=== PATIENT | male | born 1965 | race Caucasian/White ===

== ENCOUNTER 2016-06-16 10:06 | Outpatient (CLI) | payer OTHER | END 2016-06-16 10:07 | disposition home or self-care (01) | DX: E11.9 Type 2 diabetes mellitus without complications (principal) ==

== ENCOUNTER 2017-05-02 09:19 | Outpatient (CLI) | payer OTHER ==
[2017-05-02 17:58] LABS: HB2 TOTAL 16.8 g/dL; HEMOGLOBIN A1C 0.73 g/dL; HEMOGLOBIN A1C % 6.1 % (4.6-6.2)
[2017-05-02 18:18] LABS: ALBUMIN 4.3 g/dL (3.2-5.5); ALBUMIN/GLOBULIN RATIO 1.7 (1.0-2.2); ALKALINE PHOSPHATASE 54 IU/L (42-121); ALT ALANINE AMINOTRANSFERASE 21 IU/L (10-60); AST ASPARTATE AMINOTRANSFERASE 24 IU/L (10-42); BUN - BLOOD UREA NITROGEN 13 mg/dL (6-20); CALCIUM 9.3 mg/dL (8.5-10.3); CARBON DIOXIDE - CO2 27 mmol/L (21-32); CHLORIDE 99 mmol/L (101-111); CHOL/HDL RATIO 4.2 (<5.0); CHOLESTEROL 187 mg/dL; CREATININE 0.8 mg/dL (0.6-1.2); GFR - MDRD 102 (>89); GLUCOSE 104 mg/dL (70-100); HDL CHOLESTEROL 45 mg/dL; LDL CHOLESTEROL,CALCULATED 115 mg/dL; LDL/HDL RATIO 2.6 (<3.6); SODIUM 135 mmol/L (135-145); TOTAL PROTEIN 6.8 g/dL (6.7-8.2); VLDL CHOLESTEROL 27 mg/dL
== END 2017-05-02 09:20 | disposition home or self-care (01) ==
LOC: LAB.F 09:19
PROVIDERS: ATTEND Family Medicine
DX: E11.9 Type 2 diabetes mellitus without complications (principal); E78.5 Hyperlipidemia, unspecified; I10 Essential (primary) hypertension; Z12.5 Encounter for screening for malignant neoplasm of prostate
CPT/HCPCS: 36415; 80053; 80061; 82043; 83036; 83721; 84153

== ENCOUNTER 2017-10-26 08:26 | Outpatient (CLI) | payer OTHER ==
[2017-10-26 12:49] LABS: ALBUMIN 4.3 g/dL (3.2-5.5); ALBUMIN/GLOBULIN RATIO 1.4 (1.0-2.2); ALKALINE PHOSPHATASE 67 IU/L (42-121); ALT ALANINE AMINOTRANSFERASE 33 IU/L (10-60); AST ASPARTATE AMINOTRANSFERASE 29 IU/L (10-42); BILIRUBIN,TOTAL 0.6 mg/dL (0.2-1.0); BUN - BLOOD UREA NITROGEN 11 mg/dL (6-20); CALCIUM 9.5 mg/dL (8.5-10.3); CARBON DIOXIDE - CO2 29 mmol/L (21-32); CHLORIDE 98 mmol/L (101-111); CHOL/HDL RATIO 2.4 (<5.0); CHOLESTEROL 132 mg/dL; CREATININE 0.9 mg/dL (0.6-1.2); GFR - MDRD 89 (>89); GLUCOSE 101 mg/dL (70-100); HDL CHOLESTEROL 54 mg/dL; LDL CHOLESTEROL,CALCULATED 57 mg/dL; LDL/HDL RATIO 1.1 (<3.6); SODIUM 132 mmol/L (135-145); TOTAL PROTEIN 7.4 g/dL (6.7-8.2); VLDL CHOLESTEROL 21 mg/dL
[2017-10-26 12:54] LABS: HB2 TOTAL 16.3 g/dL; HEMOGLOBIN A1C 0.72 g/dL; HEMOGLOBIN A1C % 6.2 % (4.6-6.2)
== END 2017-10-26 08:27 | disposition home or self-care (01) ==
LOC: LAB.WCP 08:26
PROVIDERS: ATTEND Family Medicine
DX: E11.9 Type 2 diabetes mellitus without complications (principal); E78.5 Hyperlipidemia, unspecified; I10 Essential (primary) hypertension
CPT/HCPCS: 36415; 80053; 80061; 83036; 83721

== ENCOUNTER 2018-10-08 08:24 | Outpatient (CLI) | payer OTHER ==
[2018-10-08 10:33] LABS: HGB - HEMOGLOBIN 15.2 g/dL (14.0-18.0); MEAN CORPUSCULAR HEMOGLOBIN 32.7 pg (27.0-31.0); MEAN CORPUSCULAR HGB CONC 33.6 g/dL (32.0-36.0); MEAN CORPUSCULAR VOLUME 97.2 fL (80.0-94.0); MEAN PLATELET VOLUME 9.7 fL (7.4-11.4); RED BLOOD COUNT 4.65 10^6/uL (4.70-6.10); WHITE BLOOD COUNT 8.9 x10^3/uL (4.8-10.8)
[2018-10-08 10:42] LABS: ALBUMIN 4.3 g/dL (3.2-5.5); ALBUMIN/GLOBULIN RATIO 1.5 (1.0-2.2); ALKALINE PHOSPHATASE 59 IU/L (42-121); ALT ALANINE AMINOTRANSFERASE 32 IU/L (10-60); AST ASPARTATE AMINOTRANSFERASE 27 IU/L (10-42); BUN - BLOOD UREA NITROGEN 12 mg/dL (6-20); CALCIUM 9.6 mg/dL (8.5-10.3); CARBON DIOXIDE - CO2 25 mmol/L (21-32); CHLORIDE 97 mmol/L (101-111); CHOL/HDL RATIO 3.1 (<5.0); CHOLESTEROL 151 mg/dL; CREATININE 0.9 mg/dL (0.6-1.2); GFR - MDRD 88 (>89); GLUCOSE 122 mg/dL (70-100); HDL CHOLESTEROL 48 mg/dL; LDL CHOLESTEROL,CALCULATED 63 mg/dL; LDL/HDL RATIO 1.3 (<3.6); SODIUM 136 mmol/L (135-145); TOTAL PROTEIN 7.1 g/dL (6.7-8.2); VLDL CHOLESTEROL 40 mg/dL
[2018-10-08 10:46] LABS: HB2 TOTAL 16.4 g/dL; HEMOGLOBIN A1C 0.75 g/dL; HEMOGLOBIN A1C % 6.3 % (4.6-6.2)
== END 2018-10-08 08:25 | disposition home or self-care (01) ==
LOC: LAB.S 08:24
PROVIDERS: ATTEND Internal Medicine
DX: E78.5 Hyperlipidemia, unspecified (principal); E11.9 Type 2 diabetes mellitus without complications; K21.9 Gastro-esophageal reflux disease without esophagitis
CPT/HCPCS: 36415; 80053; 80061; 83036; 83721; 85027

== ENCOUNTER 2018-11-14 10:16 | Emergency (ER) | payer OTHER ==
--- NOTE | 2018-11-14 11:39 | ED Physician Documentation ---
PD HPI SYNCOPE - Stated complaint Stated Complaint: ds - Chief complaint Chief Complaint: General - History obtained from History obtained from: Patient - History of Present Illness Witnessed: Witnessed (patient felt positional vertigo when rolled over in bed this morning and was feeling vertigo with position changes. Rested some and felt some better so went to work. There, he had feeling of vertigo with nausea again when he tilted head up suddenly. [place] lightheaded as well. No chest pain nor headache. Called his , who brought him to [facility]. There he was looking pale and anxious, with nausea and dizziness, so referred to the ER.) Timing - onset: Today Duration: Hours Preceding symptoms: Nausea / vomiting. No: Headache, Chest pain, Abdominal pain, Light headed, Generalized weakness Contributing factors: Just stood up (with position change). No: Recent med change, Decreased PO intake Similar symptoms before: Has not had sx before Recently seen: Not recently seen Review of Systems Constitutional: denies: Fever, Chills, Myalgias Eyes: denies: Loss of vision, Decreased vision Ears: denies: Loss of hearing, Ear pain Nose: denies: Rhinorrhea / runny nose, Congestion, Foreign Body Throat: denies: Dental pain / toothache, Sore throat Cardiac: denies: Chest pain / pressure Respiratory: denies: Dyspnea GI: reports: Nausea, Vomiting. denies: Abdominal Pain, Diarrhea Neurologic: reports: Generalized weakness. denies: Difficulty speaking, Confused, Altered mental status, Head injury Psychiatric: denies: Anxiety, Insomnia Endocrine: denies: Weight loss Immunocompromised: denies: Immunocompromised PD PAST MEDICAL HISTORY - Past Medical History Cardiovascular: None Respiratory: None Endocrine/Autoimmune: Type 2 diabetes Derm: None - Past Surgical History Past Surgical History: No - Present Medications Home Medications: Ambulatory Orders Medication Instructions Recorded Confirmed Cetirizine [ZyrTEC] 10 mg PO DAILY #15 tablet 11/14/18 Meclizine HCl [Motion Sickness 25 mg PO Q6H PRN #25 tablet 11/14/18 Relief] dexAMETHasone [Decadron] 4 mg PO DAILY #5 tablet 11/14/18 - Allergies Allergies/Adverse Reactions: Allergies Allergy/AdvReac Type Severity Reaction Status Date / Time No Known Drug Allergies Allergy Verified 11/14/18 10:29 - Social History Does the pt smoke?: Yes Smoking Status: Current every day smoker PD ED PE NORMAL - Vitals Vital signs reviewed: Yes - General General: Alert and oriented X 3, No acute distress, Well developed/nourished - HEENT HEENT: Ears normal, Pharynx benign. No: Moist mucous membranes - Neck Neck: Supple, no meningeal sign, No adenopathy - Cardiac Cardiac: RRR, No murmur - Respiratory Respiratory: Clear bilaterally - Abdomen Abdomen: Normal bowel sounds, Soft, Non tender, Non distended - Derm Derm: Normal color, Warm and dry - Extremities Extremities: No tenderness to palpate, Normal ROM s pain, No edema, No calf tenderness / cord - Neuro Neuro: Alert and oriented X 3, No motor deficit, Normal speech Results - Vitals Vitals: Vital Signs - 24 hr 11/14/18 11/14/18 11/14/18 10:20 10:49 12:53 Temperature 36.7 C Heart Rate 73 94 78 Respiratory 19 15 16 Rate Blood Pressure 151/101 H 144/93 H 130/92 H O2 Saturation 99 99 97 11/14/18 11/14/18 13:12 14:56 Temperature Heart Rate 73 76 Respiratory 20 16 Rate Blood Pressure 133/93 H 125/76 O2 Saturation 98 100 Oxygen O2 Source Room air - Labs Labs: Laboratory Tests 11/14/18 11/14/18 11/14/18 10:35 Unknown Unknown WBC 9.8 RBC 4.73 Hgb 15.0 Hct 45.7 MCV 96.6 H MCH 31.7 H MCHC 32.8 RDW 13.0 Plt Count 212 MPV 9.9 Neut # (Auto) 7.3 H Lymph # (Auto) 1.6 Dickenson # (Auto) 0.8 Eos # (Auto) 0.0 Baso # (Auto) 0.1 Absolute Nucleated RBC 0.00 Nucleated RBC % 0.0 ESR Sodium Potassium Chloride Carbon Dioxide Anion Gap BUN Creatinine Estimated GFR (MDRD) Glucose POC Whole Bld Glucose 110 H Calcium Magnesium Total Bilirubin AST ALT Alkaline Phosphatase Troponin I High Sens 4.2 Total Protein Albumin Globulin Albumin/Globulin Ratio Lipase 11/14/18 11/14/18 Unknown Unknown WBC RBC Hgb Hct MCV MCH MCHC RDW Plt Count MPV Neut # (Auto) Lymph # (Auto) [place]enson # (Auto) Eos # (Auto) Baso # (Auto) Absolute Nucleated RBC Nucleated RBC % ESR 5 Sodium 134 L Potassium 4.6 Chloride 98 L Carbon Dioxide 28 Anion Gap 8.0 BUN 13 Creatinine 0.8 Estimated GFR (MDRD) 101 Glucose 112 H POC Whole Bld Glucose Calcium 9.4 Magnesium 2.1 Total Bilirubin 0.7 AST 25 ALT 28 Alkaline Phosphatase 66 Troponin I High Sens Total Protein 7.7 Albumin 4.6 Globulin 3.1 Albumin/Globulin Ratio 1.5 Lipase 28 PD MEDICAL DECISION MAKING - ED course Complexity details: considered differential, d/w patient, d/w family () Departure - Departure Disposition: Home, Self Care Clinical Impression: Dizziness, Nausea, Syncope, near Condition: Stable Record reviewed to determine appropriate education?: Yes Instructions: ED Vertigo Unspecified Follow-Up: Ton Lynne MD [Primary Care Provider] - Prescriptions: Cetirizine [ZyrTEC] 10 mg PO DAILY #15 tablet dexAMETHasone [Decadron] 4 mg PO DAILY #5 tablet Meclizine HCl [Motion Sickness Relief] 25 mg PO Q6H PRN #25 tablet PRN Reason: Vertigo Comments: Rest and stay well-hydrated today. Use Decadron steroid anti-inflammatory daily for 5 days. Cetirizine antihistamine daily for 1 to 2 weeks. Use meclizine as needed for dizziness every 6 hours based on symptoms. See how you feel tomorrow if the dizziness is improved then resume normal activity and work. It may take 2 to 3 days to feel fully better. Forms: Activity restrictions Discharge Date/Time: 11/14/18 14:56
[2018-11-14] MEDS ORDERED: KETOROLAC 15 MG/ML VIAL IVP STA (12:10)
[2018-11-14] MEDS ORDERED: MECLIZINE 12.5 MG TABLET PO STA (12:10)
[2018-11-14] MEDS ORDERED: ONDANSETRON 4 MG/2 ML VIAL IVP STA (12:10)
[2018-11-14] MEDS ORDERED: DEXAMETHASONE 10 MG/ML VIAL IVP STA (12:10)
--- NOTE | 2018-11-14 12:49 | CT Report ---
Reason: dizziness onset last night, worse today Procedure Date: 11/14/2018 Accession Number: [id number] / [id number] Procedure: CT - HEAD WO CPT Code: FULL RESULT: EXAM: CT HEAD EXAM DATE: 11/14/2018 12:36 PM. CLINICAL HISTORY: Dizziness onset last night, worse today. COMPARISON: None. TECHNIQUE: Multiaxial CT images were obtained from the foramen magnum to the vertex. Reformats: Sagittal and coronal. IV contrast: None. In accordance with CT protocol optimization, one or more of the following dose reduction techniques were utilized for this exam: automated exposure control, adjustment of mA and/or KV based on patient size, or use of iterative reconstructive technique. FINDINGS: Parenchyma: No intraparenchymal hemorrhage. No evidence of mass, midline shift, or CT findings of infarction. Smith-white differentiation is distinct. Left optic nerve drusen, typically an incidental finding. Extraaxial Spaces: Normal for age. No subdural or epidural collections identified. Ventricles: Normal in size and position. Sinuses and Orbits: Imaged paranasal sinuses, orbits, and mastoids show no significant abnormality. Bones: No evidence of fracture or calvarial defect. Probable small bone island, right temporal bone. Other: None. IMPRESSION: No significant abnormality. RADIA
[2018-11-14 13:07] LABS: BASOPHILS # (AUTO) 0.1 10^3/uL (0.0-0.1); BASOPHILS % (AUTO) 0.6 %; EOSINOPHILS % (AUTO) 0.2 %; LYMPHOCYTES # (AUTO) 1.6 10^3/uL (1.5-3.5); LYMPHOCYTES % (AUTO) 16.5 %; MEAN CORPUSCULAR HEMOGLOBIN 31.7 pg (27.0-31.0); MEAN CORPUSCULAR HGB CONC 32.8 g/dL (32.0-36.0); MEAN CORPUSCULAR VOLUME 96.6 fL (80.0-94.0); MEAN PLATELET VOLUME 9.9 fL (7.4-11.4); MONOCYTES # (AUTO) 0.8 10^3/uL (0.0-1.0); MONOCYTES % (AUTO) 8.1 %; NEUTROPHILS # (AUTO) 7.3 10^3/uL (1.5-6.6); NEUTROPHILS % (AUTO) 74.2 %; PLT - PLATELET COUNT 212 10^3/uL (130-450); RED BLOOD COUNT 4.73 10^6/uL (4.70-6.10); WHITE BLOOD COUNT 9.8 x10^3/uL (4.8-10.8)
[2018-11-14 13:13] LABS: ALBUMIN 4.6 g/dL (3.2-5.5); ALBUMIN/GLOBULIN RATIO 1.5 (1.0-2.2); BILIRUBIN,TOTAL 0.7 mg/dL (0.2-1.0); CALCIUM 9.4 mg/dL (8.5-10.3); CREATININE 0.8 mg/dL (0.6-1.2); MAGNESIUM 2.1 mg/dL (1.7-2.8); TOTAL PROTEIN 7.7 g/dL (6.7-8.2)
[2018-11-14 14:56] VITALS: BP 125/76
== END 2018-11-14 14:56 | disposition home or self-care (01) ==
LOC: ED 10:16
DX: R42 Dizziness and giddiness (principal); R11.0 Nausea; R55 Syncope and collapse; E11.9 Type 2 diabetes mellitus without complications; F17.200 Nicotine dependence, unspecified, uncomplicated
CPT/HCPCS: 36415; 70450; 80053; 83690; 83735; 84484; 85025; 85651; 93005; 96374; 99284; A9270

== ENCOUNTER 2019-01-22 07:02 | Day surgery (SDC) | payer OTHER ==
[2019-01-22] MEDS ORDERED: LACTATED RINGERS 1,000 ML IV ONE (07:07)
--- NOTE | 2019-01-22 08:09 | ANESTHESIA ---
Pre-Anesthesia VS, & Labs - Diagnosis routine colonoscopy - Procedure colonoscopy Vital Signs: Temp Pulse Resp BP Pulse Ox 36.7 C 88 16 155/106 H 99 01/22/19 07:11 01/22/19 07:11 01/22/19 07:11 01/22/19 07:11 01/22/19 07:11 Height 5 ft 9 in Weight (kg) 84 kg Body Mass Index 26.9 - Lab Results Current Lab Results: Laboratory Tests 01/22/19 07:19: POC Whole Bld Glucose 91 Home Medications and Allergies Home Medications: Ambulatory Orders Amlodipine Besylate 10 mg PO DAILY 01/09/19 Lisinopril 20 mg PO DAILY 01/09/19 Metformin HCl 850 mg PO DAILY 01/09/19 Simvastatin 40 mg PO QPM 01/09/19 Amlodipine Besylate 10 mg PO DAILY 01/09/19 Lisinopril 20 mg PO DAILY 01/09/19 Metformin HCl 850 mg PO DAILY 01/09/19 Simvastatin 40 mg PO QPM 01/09/19 Allergies/Adverse Reactions: Allergies Allergy/AdvReac Type Severity Reaction Status Date / Time No Known Drug Allergies Allergy Verified 11/14/18 10:29 Anes History & Medical History - Anesthetic History Anesthesia Complications: reports: No previous complications Family history of Anesthesia Complications: Denies Family history of Malignant Hyperthermia: Denies - Medical History Cardiovascular: reports: Hypertension, High cholesterol Pulmonary: reports: None, Other (1 ppd x 30 years) Gastrointestinal: reports: None, GERD (occassional "heart burn") Urinary: reports: None Neuro: reports: None Musculoskeletal: reports: None Endocrine/Autoimmune: reports: Type 2 diabetes Blood Disorders: reports: None Skin: reports: Psoriasis Smoking Status: Current every day smoker Psychosocial: reports: No issues indicated - Surgical History General: Colonoscopy Exam General: Alert, Oriented x3, Cooperative, No acute distress Dental: Other (chipped tooth top) Mouth Openin Fingerbreadth Neck Mobility: Normal Mallampati classification: I Thyromental Distance: 4-6 cm Respiratory: Decreased breath sounds Cardiovascular: Regular rate, Normal S1, Normal S2, No murmurs Abdomen: Normal bowel sounds, Soft, No tenderness, No hepatospenomegaly, No masses Extremities: No clubbing, No cyanosis, No edema, Normal pulses, No tenderness/swelling Neurological: Normal gait, Normal speech, Strength at 5/5 X4 ext, Normal tone, Sensation intact, Cranial nerves 3-12 NL, Reflexes 2+ Mental/Cognitive Status: Alert/Oriented X3, Normal for patient Cognitive Status: Within normal limits Plan Anesthesia Type: MAC Consent for Procedure(s) Verified and Reviewed: Yes Code Status: Attempt Resuscitation ASA classification: 2-Mild systemic disease Is this case an emergency?: No
[2019-01-22] MEDS ORDERED: PROPOFOL 200 MG/20 ML VIAL IVP ONE (09:00)
[2019-01-22] MEDS ORDERED: fentaNYL 100 MCG/2 ML VIAL IVP ONE (09:00)
[2019-01-22] MEDS ORDERED: MIDAZOLAM 2 MG/2 ML VIAL IVP ONE (09:00)
[2019-01-22 10:07] VITALS: BP 135/91
== END 2019-01-22 07:03 | disposition home or self-care (01) ==
LOC: SDS 07:02
PROVIDERS: ATTEND Internal Medicine Gastroenterology
PROC: 0DJD8ZZ Inspection of Lower Intestinal Tract, Via Natural or Artificial Opening Endoscopic (ICD-10-PCS; principal; 2019-01-22 08:30)
DX: Z12.11 Encounter for screening for malignant neoplasm of colon (principal); E11.9 Type 2 diabetes mellitus without complications; I10 Essential (primary) hypertension; I73.9 Peripheral vascular disease, unspecified; F17.210 Nicotine dependence, cigarettes, uncomplicated; Z72.89 Other problems related to lifestyle; K21.9 Gastro-esophageal reflux disease without esophagitis
CPT/HCPCS: 45378; J7120

== ENCOUNTER 2019-10-24 08:57 | Outpatient (CLI) | payer OTHER ==
[2019-10-24 15:52] LABS: HB2 TOTAL 15.8 g/dL; HEMOGLOBIN A1C 0.69 g/dL; HEMOGLOBIN A1C % 6.1 % (4.6-6.2)
[2019-10-24 16:23] LABS: ALBUMIN 4.3 g/dL (3.2-5.5); ALBUMIN/GLOBULIN RATIO 1.5 (1.0-2.2); ALKALINE PHOSPHATASE 69 IU/L (42-121); ALT ALANINE AMINOTRANSFERASE 38 IU/L (10-60); AST ASPARTATE AMINOTRANSFERASE 32 IU/L (10-42); BILIRUBIN,TOTAL 0.7 mg/dL (0.2-1.0); BUN - BLOOD UREA NITROGEN 10 mg/dL (6-20); CALCIUM 9.6 mg/dL (8.5-10.3); CARBON DIOXIDE - CO2 28 mmol/L (21-32); CHLORIDE 99 mmol/L (101-111); CHOL/HDL RATIO 2.8 (<5.0); CHOLESTEROL 129 mg/dL; GLUCOSE 112 mg/dL (70-100); HDL CHOLESTEROL 46 mg/dL; LDL CHOLESTEROL,CALCULATED 63 mg/dL; LDL/HDL RATIO 1.4 (<3.6); SODIUM 135 mmol/L (135-145); TOTAL PROTEIN 7.1 g/dL (6.7-8.2); VLDL CHOLESTEROL 20 mg/dL
== END 2019-10-24 08:58 | disposition home or self-care (01) ==
LOC: LAB.S 08:57
PROVIDERS: ATTEND Internal Medicine
DX: E78.5 Hyperlipidemia, unspecified (principal); E11.9 Type 2 diabetes mellitus without complications
CPT/HCPCS: 36415; 80053; 80061; 83036; 83721

== ENCOUNTER 2020-03-28 00:25 | Outpatient (CLI) | payer OTHER | END 2020-03-28 00:26 | disposition EMS.NT | LOC: EMS 00:25 | PROVIDERS: ATTEND Surgery | DX: R07.81 Pleurodynia (principal) ==

== ENCOUNTER 2020-03-28 01:19 | Emergency (ER) | payer OTHER ==
[2020-03-28 02:16] LABS: BASOPHILS % (AUTO) 0.3 %; EOSINOPHILS % (AUTO) 0.2 %; HGB - HEMOGLOBIN 14.4 g/dL (14.0-18.0); LYMPHOCYTES # (AUTO) 1.8 10^3/uL (1.5-3.5); LYMPHOCYTES % (AUTO) 15.3 %; MEAN CORPUSCULAR HEMOGLOBIN 32.5 pg (27.0-31.0); MEAN CORPUSCULAR HGB CONC 33.8 g/dL (32.0-36.0); MEAN CORPUSCULAR VOLUME 96.2 fL (80.0-94.0); MEAN PLATELET VOLUME 9.6 fL (7.4-11.4); MONOCYTES # (AUTO) 0.9 10^3/uL (0.0-1.0); MONOCYTES % (AUTO) 7.5 %; NEUTROPHILS # (AUTO) 8.9 10^3/uL (1.5-6.6); NEUTROPHILS % (AUTO) 76.4 %; PLT - PLATELET COUNT 232 10^3/uL (130-450); RED BLOOD COUNT 4.43 10^6/uL (4.70-6.10); RED CELL DISTRIBUTION WIDTH 12.9 % (12.0-15.0); WHITE BLOOD COUNT 11.7 x10^3/uL (4.8-10.8)
--- NOTE | 2020-03-28 02:23 | ED Physician Documentation ---
PD HPI SYNCOPE - Stated complaint Stated Complaint: GLF/SYNCOPE - Chief complaint Chief Complaint: Trauma Ch/Bk - History obtained from History obtained from: Patient - History of Present Illness Witnessed: Unwitnessed Timing - onset: Enter time (1844), Today Duration: Seconds Preceding symptoms: Other (coughing paroxysm) Associated symptoms: Chest pain, Dyspnea Contributing factors: Other (coughing paroxysm) Injury occurred: Fell (injuring his back on the left side feels like he broke a rib) Similar symptoms before: No diagnosis (has had syncope with seizure with coughing paroxysm) Recently seen: Not recently seen - Additional information Additional information: 54-year-old smoking male alcoholic has had a cough that has been worse over the past month and he is having coughing paroxysms that are hard enough that he is having syncope. He has had an episode last month where he coughed hard enough he had a seizure according to his . The patient states that today he was in the bathroom he had a coughing paroxysm that caused a syncopal episode he fell against a wall and has pain to the ribs on the back on the left side. He also has some pain in his abdomen anteriorly. He has not been in see the doctor about his cough he does not have medications he takes for this. This fall happened at 89 and the patient has not been able to get comfortable he is not been able to sleep has not been able to move around. Review of Systems Constitutional: denies: Fever Eyes: denies: Loss of vision, Decreased vision Ears: denies: Ear pain Nose: reports: Rhinorrhea / runny nose, Congestion Throat: denies: Sore throat Cardiac: reports: Chest pain / pressure (to the back on the left side). denies: Palpitations Respiratory: reports: Dyspnea, Cough GI: reports: Abdominal Pain. denies: Nausea, Vomiting, Constipation, Diarrhea : denies: Dysuria, Frequency Skin: denies: Rash Musculoskeletal: reports: Back pain. denies: Neck pain, Extremity pain, Extremity swelling Neurologic: reports: Syncope, Seizure. denies: Generalized weakness, Focal weakness, Numbness PD PAST MEDICAL HISTORY - Past Medical History Past Medical History: Yes Cardiovascular: Hypertension, High cholesterol Respiratory: None, Other Neuro: None Endocrine/Autoimmune: Type 2 diabetes GI: None, GERD : None HEENT: Chronic vision loss, Other Psych: None Musculoskeletal: None Derm: Psoriasis Other Past Medical History: Alcoholism - Past Surgical History Past Surgical History: No General: Colonoscopy - Present Medications Home Medications: Ambulatory Orders Medication Instructions Recorded Confirmed Amlodipine Besylate 10 mg PO DAILY 01/09/19 03/28/20 Metformin HCl 850 mg PO DAILY 01/09/19 03/28/20 Simvastatin 40 mg PO QPM 01/09/19 03/28/20 lisinopriL [Lisinopril] 20 mg PO DAILY 01/09/19 03/28/20 Amox/Clav 875/125 [Augmentin] 1 each PO Q12H #20 tablet 03/28/20 Benzonatate [Tessalon] 100 - 200 mg PO TID PRN #30 capsule 03/28/20 HYDROcod/ACETAM 5/325 [Knippa 5/325] 1 - 2 ea PO Q6H PRN #15 tablet 03/28/20 - Allergies Allergies/Adverse Reactions: Allergies Allergy/AdvReac Type Severity Reaction Status Date / Time No Known Drug Allergies Allergy Verified 03/28/20 01:37 - Social History Does the pt smoke?: Yes Smoking Status: Current every day smoker Does the pt drink ETOH?: Yes Does the pt have substance abuse?: No - Immunizations Immunizations are current?: Yes - POLST Patient has POLST: No PD ED PE NORMAL - Vitals Vital signs reviewed: Yes - General General: Alert and oriented X 3, No acute distress, Well developed/nourished, Other (winches with coughing and movement ) - HEENT HEENT: Atraumatic, PERRL, EOMI, Pharynx benign, Other (Both TMs are occluded by cerumen.) - Neck Neck: Supple, no meningeal sign, No bony TTP - Cardiac Cardiac: RRR, No murmur - Respiratory Respiratory: No respiratory distress, Other (Rhonchi in the left mid lung field pain to the chest wall posteriorly on the left side) - Abdomen Abdomen: Normal bowel sounds, Soft, Non distended, No organomegaly, Other (There is mild point tenderness to the abdominal wall anteriorly on the left side.) - Back Back: No spinal TTP, Other (There is left CVA tenderness to palpation referring to the ribs posteriorly.) - Derm Derm: Normal color, Warm and dry, No rash - Extremities Extremities: No deformity, No edema - Neuro Neuro: Alert and oriented X 3, veneer layer 2-12 intact, No motor deficit, No sensory deficit, Normal speech Eye Opening: Spontaneous Motor: Obeys Commands Verbal: Oriented GCS Score: 15 - Psych Psych: Normal mood, Normal affect Results - Vitals Vitals: Vital Signs - 24 hr 03/28/20 03/28/20 03/28/20 01:20 02:15 02:45 Temperature 36.2 C L Heart Rate 85 82 81 Respiratory 24 19 21 Rate Blood Pressure 119/78 133/86 H 146/100 H O2 Saturation 98 98 98 03/28/20 03/28/20 03/28/20 03:34 03:59 04:25 Temperature 36.8 C Heart Rate 85 86 88 Respiratory 20 22 21 Rate Blood Pressure 141/88 H 141/88 H 159/86 H O2 Saturation 100 97 98 Oxygen O2 Source Room air - EKG (time done) 0133 Rate: Rate (enter#) (92) Intervals: Prolonged QT (borderline) Other comments: Other comments (early transition unchanged. ) Compare to prior EKG: Unchanged from prior EKG (SPT 11-14-2018 no changes ) Computer interpretation: Agree with computer - Labs Labs: Laboratory Tests 03/28/20 03/28/20 03/28/20 01:40 01:40 01:40 WBC 11.7 H RBC 4.43 L Hgb 14.4 Hct 42.6 MCV 96.2 H MCH 32.5 H MCHC 33.8 RDW 12.9 Plt Count 232 MPV 9.6 Neut # (Auto) 8.9 H Lymph # (Auto) 1.8 [place] # (Auto) 0.9 Eos # (Auto) 0.0 Baso # (Auto) 0.0 Absolute Nucleated RBC 0.00 Nucleated RBC % 0.0 Sodium 129 L Potassium 4.3 Chloride 95 L Carbon Dioxide 25 Anion Gap 9.0 BUN 11 Creatinine 0.8 Estimated GFR (MDRD) 100 Glucose 140 H POC Whole Bld Glucose Calcium 8.8 Total Bilirubin 0.8 AST 23 ALT 32 Alkaline Phosphatase 57 Troponin I High Sens 4.1 Total Protein 7.2 Albumin 4.3 Globulin 2.9 Albumin/Globulin Ratio 1.5 Lipase 76 H Ethyl Alcohol 03/28/20 03/28/20 01:40 01:49 WBC RBC Hgb Hct MCV MCH MCHC RDW Plt Count MPV Neut # (Auto) Lymph # (Auto) [place] # (Auto) Eos # (Auto) Baso # (Auto) Absolute Nucleated RBC Nucleated RBC % Sodium Potassium Chloride Carbon Dioxide Anion Gap BUN Creatinine Estimated GFR (MDRD) Glucose POC Whole Bld Glucose 149 H Calcium Total Bilirubin AST ALT Alkaline Phosphatase Troponin I High Sens Total Protein Albumin Globulin Albumin/Globulin Ratio Lipase Ethyl Alcohol 131.3 - Rads (name of study) ribs with PA chest Radiology: Prelim report reviewed (Impression: Left ninth 10th and 11th rib fractures appear to be acute. No pneumothorax is appreciated.), EMP read indepedently, See rad report Procedures - Bedside sono Bedside sono by EMP: With use of bedside ultrasound the left upper quadrant is imaged and there is no free fluid in the spenorenal recess. PD MEDICAL DECISION MAKING - ED course Complexity details: reviewed old records, reviewed results, re-evaluated patient, considered differential, d/w patient ED course: 54-year-old gentleman with a coughing paroxysm and syncope with a related chest wall injury is very uncomfortable with any movement and here in the emergency department an IV is begun he is given intravenous Toradol and dexamethasone and rib series is obtained. The patient has had a cough with coughing paroxysms that is been present for 1 more than 1 month causing both syncope, broken ribs and seizure. He has cerumen to both ears and this is removed by irrigation with warm saline and this reveals inflammation and flattening of the landmarks on the right and clear on the left. The coughing paroxysms are likely related the chest looks clear on X-ray. He is treated for OM with a dose of rocephin in the ED and augmentin to follow up. He has 2 cracked ribs and a displace rib fracture. He has improvement with the toradal. He works in the [employer] and will need at least 4 weeks off. Departure - Departure Disposition: 01 Home, Self Care Clinical Impression: Paroxysmal cough Fracture of rib Qualifiers: Encounter type: initial encounter Rib fracture type: multiple ribs Fracture type: closed Laterality: left Qualified Code(s): S22.42XA - Multiple fractures of ribs, left side, initial encounter for closed fracture Otitis media Qualifiers: Otitis media type: suppurative Chronicity: acute Laterality: right Recurrence: not specified as recurrent Spontaneous tympanic membrane rupture: without spontaneous rupture Qualified Code(s): H66.001 - Acute suppurative otitis media without spontaneous rupture of ear drum, right ear Instructions: ED Fx Rib, ED Otitis Media Acute Adult Follow-Up: [facility] [Provider Group] Prescriptions: Amox/Clav 875/125 [Augmentin] 1 each PO Q12H #20 tablet HYDROcod/ACETAM 5/325 [Knippa 5/325] 1 - 2 ea PO Q6H PRN #15 tablet PRN Reason: Pain Benzonatate [Tessalon] 100 - 200 mg PO TID PRN #30 capsule PRN Reason: Cough Forms: Activity restrictions
[2020-03-28 02:26] LABS: ALBUMIN 4.3 g/dL (3.2-5.5); ALBUMIN/GLOBULIN RATIO 1.5 (1.0-2.2); BILIRUBIN,TOTAL 0.8 mg/dL (0.2-1.0); CALCIUM 8.8 mg/dL (8.5-10.3); CREATININE 0.8 mg/dL (0.6-1.2); TOTAL PROTEIN 7.2 g/dL (6.7-8.2)
[2020-03-28] MEDS ORDERED: DEXAMETHASONE 10 MG/ML VIAL IVP STA (02:36)
[2020-03-28] MEDS ORDERED: KETOROLAC 30 MG/ML VIAL IVP STA (02:36)
[2020-03-28] MEDS ORDERED: HYDROcod/ACETAM 5/325 MG TABLET PO STA (04:03)
[2020-03-28] MEDS ORDERED: HYDROcod/ACET 5/325 Prepack 4 PO STA (04:04)
[2020-03-28 04:28] VITALS: BP 159/86
--- NOTE | 2020-03-28 08:20 | XRAY Report ---
PROCEDURE: Ribs w/PA Chest LT INDICATIONS: fall chest contusion pain cough TECHNIQUE: 4 views of the left ribs were acquired, along with a single view chest. COMPARISON: None FINDINGS: Surgical changes and devices: None. Bones and chest wall: Mildly displaced, acute appearing left lateral ninth, 10th, and 11th rib fractu res can be seen. No suspicious bony lesions. Overlying soft tissues appear unremarkable. Lungs and pleura: No pleural effusions or pneumothorax. Lungs appear clear. Mediastinum: Mediastinal contours appear normal. Heart size is normal. IMPRESSION: There are mildly displaced left lateral ninth, 10th, and 11th rib fractures. No associated pneumothorax can be seen. Note: No significant discrepancy from the preliminary report. Reviewed by: Keven Onofre MD on 03/28/2020 7:18 AM [facility] Approved by: Keven Onofre MD on 03/28/2020 7:18 AM [facility] Station ID: [id number]
== END 2020-03-28 04:35 | disposition home or self-care (01) ==
LOC: ED 01:19
DX: S22.42XA Multiple fractures of ribs, left side, initial encounter for closed fracture (principal); W01.190A Fall on same level from slipping, tripping and stumbling with subsequent striking against furniture, initial encounter; Y93.F9 Activity, other caregiving; Y92.002 Bathroom of unspecified non-institutional (private) residence as the place of occurrence of the external cause; H66.001 Acute suppurative otitis media without spontaneous rupture of ear drum, right ear; I10 Essential (primary) hypertension; E11.9 Type 2 diabetes mellitus without complications; Z79.84 Long term (current) use of oral hypoglycemic drugs; F17.200 Nicotine dependence, unspecified, uncomplicated; R94.31 Abnormal electrocardiogram [ECG] [EKG]
CPT/HCPCS: 71101; 80053; 80320; 83690; 84484; 85025; 93005; 96374; 96375; 99284; A9270

== ENCOUNTER 2020-10-26 09:25 | Outpatient (CLI) | payer OTHER ==
[2020-10-26 16:32] LABS: BUN - BLOOD UREA NITROGEN 16 mg/dL (6-20); CALCIUM 9.3 mg/dL (8.5-10.3); CARBON DIOXIDE - CO2 28 mmol/L (21-32); CHLORIDE 97 mmol/L (101-111); CHOL/HDL RATIO 3.4 (<5.0); CHOLESTEROL 175 mg/dL; GFR - MDRD 78 (>89); GLUCOSE 114 mg/dL (70-100); HDL CHOLESTEROL 52 mg/dL; LDL CHOLESTEROL,CALCULATED 93 mg/dL; LDL/HDL RATIO 1.8 (<3.6); POTASSIUM 4.2 mmol/L (3.5-5.0); SODIUM 134 mmol/L (135-145); TRIGLYCERIDES 148 mg/dL; VLDL CHOLESTEROL 30 mg/dL
[2020-10-26 16:37] LABS: CREATININE,URINE 116.1 mg/dL; MICROALBUM/CREATININE RATIO,UR 9.5 ug/mg (<30.0); MICROALBUMIN,URINE 1.1 mg/dL (0-300.0)
[2020-10-26 20:10] LABS: ESTIMATED AVERAGE GLUCOSE 140 mg/dL (70-100); HEMOGLOBIN A1c% 6.5 % (4.27-6.07)
== END 2020-10-26 09:26 | disposition home or self-care (01) ==
LOC: LAB.S 09:25
PROVIDERS: ATTEND Physician Assistant
DX: E11.9 Type 2 diabetes mellitus without complications (principal); E78.5 Hyperlipidemia, unspecified; I10 Essential (primary) hypertension
CPT/HCPCS: 36415; 80048; 80061; 82043; 82570; 83036; 83721

== ENCOUNTER 2021-09-09 15:21 | Outpatient (CLI) | payer OTHER ==
--- NOTE | 2021-09-09 19:09 | CT Report ---
PROCEDURE: Low Dose Lung Cancer Screen INDICATIONS: NICOTINE DEPENDENCE TECHNIQUE: Noncontrast low-dose images were acquired from the pulmonary apices to the posterior costophrenic ang les. Multiplanar MIP reformats were then acquired. For radiation dose reduction, the following was used: automated exposure control, adjustment of mA and/or kV according to patient size. COMPARISON: None. FINDINGS: Image quality: Excellent. Lungs and pleura: Lung nodules are present. Reference nodules are listed in following: Nodule 1: 6 mm; right apex; series 4 image 51. Nodule 2: 6 mm; right upper lobe; series 4 image 172. Nodule 3: 4 mm; right lower lobe; series 4 image 168. Nodule 4: 8 x 6 mm; left major fissure; series 4 image 151. Nodule 5: 3 mm; left major fissure; series 4 image 147. Mediastinum: Heart size is normal. No pericardial effusion. No mediastinal adenopathy by size crit eria. Thoracic aorta and central pulmonary arteries are normal in size. Esophagus is normal in becka silvia. No hiatal hernia. Bones and chest wall: There are enlarged left axillary lymph nodes are seen, measuring up to 1.5 cm (series 3 image 13). No suspicious bony lesions. No vertebral body compression fractures. The thyroid is normal in size and there are no incidental findings. Abdomen: Visualized upper abdomen solid organs and bowel loops appear normal in the absence of contr ast. IMPRESSION: 1. Multiple lung nodules are present bilaterally. ACR lung RADS category 3. Recommend a follow-up CT in 6 months. 2. Mild left axillary lymphadenopathy, nonspecific. Recommend clinical correlation and follow-up. CLINICAL RECOMMENDATION STATEMENTS: In patients <35 years with an ITN detected on CT, MRI, or extrathyroidal ultrasound, the Committee re commends further evaluation with dedicated thyroid ultrasound if the nodule is "e1 cm and has no susp icious imaging features, and if the patient has normal life expectancy. In patients "e35 years with an ITN detected on CT, MRI, or extrathyroidal ultrasound, the Committee r ecommends further evaluation with dedicated thyroid ultrasound if the nodule is "e1.5 cm and has no s uspicious imaging features, and if the patient has normal life expectancy. (ACR, 2014) Reviewed by: Troy Liu MD on 09/09/2021 7:07 PM PDT Approved by: Troy Liu MD on 09/09/2021 7:07 PM [facility] Station ID: [id number]
== END 2021-09-09 15:22 | disposition home or self-care (01) ==
LOC: DI 15:21
PROVIDERS: ATTEND Physician Assistant
DX: Z12.2 Encounter for screening for malignant neoplasm of respiratory organs (principal); F17.200 Nicotine dependence, unspecified, uncomplicated; R91.8 Other nonspecific abnormal finding of lung field; R59.0 Localized enlarged lymph nodes

== ENCOUNTER 2021-09-15 08:35 | Outpatient (CLI) | payer OTHER ==
[2021-09-15 14:24] LABS: BASOPHILS # (AUTO) 0.1 10^3/uL (0.0-0.1); BASOPHILS % (AUTO) 0.8 %; EOSINOPHILS # (AUTO) 0.1 10^3/uL (0.0-0.7); EOSINOPHILS % (AUTO) 0.7 %; HCT - HEMATOCRIT 45.2 % (42.0-52.0); HGB - HEMOGLOBIN 15.2 g/dL (14.0-18.0); LYMPHOCYTES # (AUTO) 2.4 10^3/uL (1.5-3.5); LYMPHOCYTES % (AUTO) 25.8 %; MEAN CORPUSCULAR HEMOGLOBIN 32.6 pg (27.0-31.0); MEAN CORPUSCULAR HGB CONC 33.6 g/dL (32.0-36.0); MEAN PLATELET VOLUME 10.2 fL (7.4-11.4); MONOCYTES # (AUTO) 0.8 10^3/uL (0.0-1.0); MONOCYTES % (AUTO) 8.6 %; NEUTROPHILS # (AUTO) 5.8 10^3/uL (1.5-6.6); NEUTROPHILS % (AUTO) 63.3 %; PLT - PLATELET COUNT 209 10^3/uL (130-450); RED BLOOD COUNT 4.66 10^6/uL (4.70-6.10); RED CELL DISTRIBUTION WIDTH 13.2 % (12.0-15.0); WHITE BLOOD COUNT 9.1 x10^3/uL (4.8-10.8)
[2021-09-15 14:52] LABS: ALBUMIN 4.2 g/dL (3.2-5.5); ALBUMIN/GLOBULIN RATIO 1.4 (1.0-2.2); ALKALINE PHOSPHATASE 48 IU/L (42-121); ALT ALANINE AMINOTRANSFERASE 40 IU/L (10-60); AST ASPARTATE AMINOTRANSFERASE 29 IU/L (10-42); BILIRUBIN,TOTAL 0.7 mg/dL (0.2-1.0); BUN - BLOOD UREA NITROGEN 15 mg/dL (6-20); CALCIUM 9.6 mg/dL (8.5-10.3); CARBON DIOXIDE - CO2 26 mmol/L (21-32); CHLORIDE 101 mmol/L (101-111); CHOL/HDL RATIO 3.1 (<5.0); CHOLESTEROL 152 mg/dL; CREATININE 0.9 mg/dL (0.6-1.2); GFR - MDRD 87 (>89); GLUCOSE 106 mg/dL (70-100); HDL CHOLESTEROL 49 mg/dL; LDL CHOLESTEROL,CALCULATED 74 mg/dL; LDL/HDL RATIO 1.5 (<3.6); POTASSIUM 4.4 mmol/L (3.5-5.0); SODIUM 135 mmol/L (135-145); TOTAL PROTEIN 7.1 g/dL (6.7-8.2); TRIGLYCERIDES 144 mg/dL; VLDL CHOLESTEROL 29 mg/dL
[2021-09-15 14:53] LABS: THYROID STIMULATING HORMONE 2.6 uIU/mL (0.34-5.60)
[2021-09-15 15:20] LABS: MICROALBUM/CREATININE RATIO,UR 3.4 ug/mg (<30.0); MICROALBUMIN,URINE 0.5 mg/dL (0-300.0)
[2021-09-15 20:55] LABS: ESTIMATED AVERAGE GLUCOSE 143 mg/dL (70-100); HEMOGLOBIN A1c% 6.6 % (4.27-6.07)
== END 2021-09-15 08:36 | disposition home or self-care (01) ==
LOC: LAB.S 08:35
PROVIDERS: ATTEND Physician Assistant
DX: F17.200 Nicotine dependence, unspecified, uncomplicated (principal); E78.5 Hyperlipidemia, unspecified; E11.9 Type 2 diabetes mellitus without complications; I10 Essential (primary) hypertension; N52.9 Male erectile dysfunction, unspecified
CPT/HCPCS: 36415; 80053; 80061; 82043; 82570; 83036; 83721; 84153; 84443; 85025

== ENCOUNTER 2022-03-22 15:42 | Outpatient (CLI) | payer OTHER ==
--- NOTE | 2022-03-22 16:31 | CT Report ---
PROCEDURE: CHEST WO INDICATIONS: LUNG NODULES TECHNIQUE: Noncontrast 1mm axial images were acquired from the pulmonary apices to the posterior costophrenic an gles. Axial 5 mm soft tissue kernel reconstructions were performed as well as 8 mm axial MIP and cor onal and sagittal 5 mm reformations. For radiation dose reduction, the following was used: automate d exposure control, adjustment of mA and/or kV according to patient size. COMPARISON: 09/09/2021 FINDINGS: Image quality: Good Lungs and pleura: No dense consolidation or pleural effusion. Scattered scarring and atelectasis. Emp hysema. Stable pulmonary nodules. None are overtly suspicious. There are also fissural lymph nodes. Mediastinum, heart, and esophagus: No hiatal hernia. There are prominent mediastinal lymph nodes that are stable. Normal heart size. Chest wall and thyroid: Unremarkable Upper abdomen: Unremarkable on these limited images. Bones: No acute or suspicious osseous abnormality. IMPRESSION: Assuming patient remains eligible, recommend return to annual lung cancer low-dose CT screening. Pulm onary nodules are stable. Reviewed by: Boo Macedo MD on 03/22/2022 4:29 PM PST Approved by: Boo Macedo MD on 03/22/2022 4:29 PM PST Station ID: [id number]
== END 2022-03-22 15:43 | disposition home or self-care (01) ==
LOC: DI 15:42
PROVIDERS: ATTEND Physician Assistant
DX: R91.8 Other nonspecific abnormal finding of lung field (principal)

== ENCOUNTER 2022-04-06 08:00 | Outpatient (CLI) | payer OTHER | END 2022-04-06 23:59 | disposition home or self-care (01) | LOC: LAB.WCP 08:00 | PROVIDERS: ATTEND Physician Assistant | DX: R55 Syncope and collapse (principal); R05.4 Cough syncope | CPT/HCPCS: 81599; 87798 ==

== ENCOUNTER 2022-04-11 15:45 | Outpatient (CLI) | payer OTHER ==
--- NOTE | 2022-04-11 17:23 | XRAY Report ---
PROCEDURE: Chest 2 View X-Ray INDICATIONS: COUGH SYNCOPE TECHNIQUE: 2 views of the chest were acquired. COMPARISON: 03/28/2020 FINDINGS: Surgical changes and devices: None. Lungs and pleura: No pleural effusions or pneumothorax. Lungs are clear. Mediastinum: Mediastinal contours are normal. Heart size is normal. Bones and chest wall: No suspicious bony abnormalities. Soft tissues appear unremarkable. IMPRESSION: Chest without acute cardiopulmonary abnormalities or focal airspace disease. Reviewed by: Alec Morris MD on 04/11/2022 5:22 PM PST Approved by: Alec Morris MD on 04/11/2022 5:22 PM PST Station ID: [id number]
== END 2022-04-11 15:46 | disposition home or self-care (01) ==
LOC: DI 15:45
PROVIDERS: ATTEND Physician Assistant
DX: R55 Syncope and collapse (principal); R05.4 Cough syncope

== ENCOUNTER 2023-02-09 06:54 | Outpatient (CLI) | payer OTHER ==
[2023-02-09 07:23] LABS: ALBUMIN 4.5 g/dL (3.2-5.5); ALBUMIN/GLOBULIN RATIO 1.8 (1.0-2.2); ALKALINE PHOSPHATASE 65 IU/L (42-121); ALT ALANINE AMINOTRANSFERASE 21 IU/L (10-60); AST ASPARTATE AMINOTRANSFERASE 17 IU/L (10-42); BILIRUBIN,TOTAL 0.5 mg/dL (0.2-1.0); BUN - BLOOD UREA NITROGEN 13 mg/dL (6-20); CALCIUM 9.6 mg/dL (8.5-10.3); CARBON DIOXIDE - CO2 29 mmol/L (21-32); CHLORIDE 101 mmol/L (101-111); CHOL/HDL RATIO 2.5 (<5.0); CHOLESTEROL 125 mg/dL; GFR - MDRD 77 (>89); GLUCOSE 120 mg/dL (74-104); HDL CHOLESTEROL 51 mg/dL; LDL CHOLESTEROL,CALCULATED 48 mg/dL; LDL/HDL RATIO 0.9 (<3.6); POTASSIUM 4.3 mmol/L (3.5-4.5); SODIUM 137 mmol/L (135-145); TRIGLYCERIDES 130 mg/dL (48-352); VLDL CHOLESTEROL 26 mg/dL
[2023-02-09 07:35] LABS: BASOPHILS # (AUTO) 0.1 10^3/uL (0.0-0.1); BASOPHILS % (AUTO) 0.8 %; EOSINOPHILS # (AUTO) 0.1 10^3/uL (0.0-0.7); EOSINOPHILS % (AUTO) 1.5 %; HCT - HEMATOCRIT 46.2 % (42.0-52.0); HGB - HEMOGLOBIN 15.6 g/dL (14.0-18.0); LYMPHOCYTES # (AUTO) 2.1 10^3/uL (1.5-3.5); LYMPHOCYTES % (AUTO) 29.4 %; MEAN CORPUSCULAR HEMOGLOBIN 32.6 pg (27.0-31.0); MEAN CORPUSCULAR HGB CONC 33.8 g/dL (32.0-36.0); MEAN CORPUSCULAR VOLUME 96.7 fL (80.0-94.0); MEAN PLATELET VOLUME 9.3 fL (7.4-11.4); MONOCYTES # (AUTO) 0.7 10^3/uL (0.0-1.0); MONOCYTES % (AUTO) 9.6 %; NEUTROPHILS # (AUTO) 4.3 10^3/uL (1.5-6.6); NEUTROPHILS % (AUTO) 58.3 %; PLT - PLATELET COUNT 246 10^3/uL (130-450); RED BLOOD COUNT 4.78 10^6/uL (4.70-6.10); RED CELL DISTRIBUTION WIDTH 13.1 % (12.0-15.0); WHITE BLOOD COUNT 7.3 x10^3/uL (4.8-10.8)
[2023-02-09 07:39] LABS: THYROID STIMULATING HORMONE 3.21 uIU/mL (0.34-5.60)
[2023-02-09 07:40] LABS: CREATININE,URINE 182.3 mg/dL; MICROALBUM/CREATININE RATIO,UR 13.2 ug/mg (<30.0); MICROALBUMIN,URINE 2.4 mg/dL
[2023-02-09 10:51] LABS: ESTIMATED AVERAGE GLUCOSE 137 mg/dL (70-100); HEMOGLOBIN A1c% 6.4 % (4.27-6.07)
== END 2023-02-09 06:55 | disposition home or self-care (01) ==
LOC: LAB 06:54
PROVIDERS: ATTEND Physician Assistant
DX: E11.9 Type 2 diabetes mellitus without complications (principal); I10 Essential (primary) hypertension; E78.5 Hyperlipidemia, unspecified; Z12.5 Encounter for screening for malignant neoplasm of prostate
CPT/HCPCS: 36415; 80053; 80061; 82043; 82570; 83036; 83721; 84153; 84443; 85025

== ENCOUNTER 2023-09-04 15:43 | Outpatient (CLI) | payer OTHER ==
--- NOTE | 2023-09-04 19:01 | CT Report ---
PROCEDURE: Lung Cancer Screen INDICATIONS: NICOTINE DEPENDENCE TECHNIQUE: A CT scan of the chest was performed. Intravenous contrast media was not administered. Images were re corded and evaluated at appropriate window settings. Reformats: axial MIP of the chest, coronal and s agittal. For radiation dose reduction, the following was used: automated exposure control, adjustment of mA and/or kV according to patient size. COMPARISON: CT lung screening dated 09/09/2021, CT chest without contrast dated 09/09/2021. FINDINGS: Image quality: Excellent. Prior cancer history: None given Lungs and pleura: No pleural effusions. No pneumothorax. Pulmonary nodules are as follows--all descr ibed on series 4: 1. A previous some solid pulmonary nodule in the right apex on initial prior image 51/4 has resolved. 2. A fissural nodule along the minor fissure on previous image 172/4 and current image 61 is unchange d. It measures 6 mm, and is likely a fissural lymph node. 3. Stable 3 mm fissural nodule along the major fissure of the right lung, previous image 168/4 and cu rrent image 63/4. 4. Stable 4 x 7 mm fissural nodule, left lung, previous image 151/4 and current image 53. 5. Stable 3 mm fissural nodule, left lung, previous image 147 and current image 51. No new or increasing pulmonary nodules are identified. Mediastinum: Heart size is normal. No pericardial effusion. No large vessel abnormality. No mediastin al adenopathy by size criteria. Chest wall and lower neck: Thyroid is unremarkable. No axillary or supraclavicular adenopathy by size . Bones: No aggressive osseous abnormality. Upper Abdomen: Unremarkable. IMPRESSION: Lung RAD: 2 - Benign. Recommendation: Continue annual screening in 12 Months with LDCT Non-Lung Significant Findings: None. Reviewed by: Quentin Ennis MD on 09/04/2023 7:00 PM PDT Approved by: Quentin Ennis MD on 09/04/2023 7:00 PM PDT Station ID: [id number]
== END 2023-09-04 15:44 | disposition home or self-care (01) ==
LOC: DI 15:43
PROVIDERS: ATTEND Physician Assistant
DX: Z12.2 Encounter for screening for malignant neoplasm of respiratory organs (principal); F17.200 Nicotine dependence, unspecified, uncomplicated

== ENCOUNTER 2023-10-06 08:03 | Outpatient (CLI) | payer OTHER ==
[2023-10-06 08:32] LABS: CALCIUM 9.9 mg/dL (8.5-10.3); CREATININE 0.9 mg/dL (0.6-1.3); POTASSIUM 4.3 mmol/L (3.5-4.5)
[2023-10-06 09:20] LABS: ESTIMATED AVERAGE GLUCOSE 148 mg/dL (70-100); HEMOGLOBIN A1c% 6.8 % (4.27-6.07)
== END 2023-10-06 08:04 | disposition home or self-care (01) ==
LOC: LAB 08:03
PROVIDERS: ATTEND Physician Assistant
DX: E11.9 Type 2 diabetes mellitus without complications (principal)
CPT/HCPCS: 36415; 80048; 83036